=== PATIENT | female | born 1985 | race Caucasian/White ===

== ENCOUNTER 2018-05-05 15:58 | Emergency (ER) | payer BC, SELFPAY ==
[2018-05-05 15:59] VITALS: BP 155/94; PULSE 104; RESP 16; TEMP 36.9; O2SAT 98; BMI 25.7
[2018-05-05] MEDS: Diphth,Pertuss(Acell),Tet Vac 0.5 ML Vial IM (16:22)
--- NOTE | 2018-05-05 16:43 | ED.DCSUM_ITS ---
- ER Visit Summary Date of Service: 05/05/18 Chief Complaint: Left long finger laceration History of Present Illness: The patient is a 32 F right-hand dominant. Last tetanus shot was more than 10 years ago and will need to be updated today. She was cutting a cantaloupe at home and accidentally lacerated her left long finger on the mid phalanx. This occurred within the last hour or so. No other injuries. Physical Examination: Ill-appearing young female. Vital signs are stable afebrile. H EENT exam unremarkable. Lungs clear to auscultation. Heart regular rhythm no murmur. Abdomen soft nontender. She is moving all 4 extremities. They are neurovascularly intact. Her left long finger on the mid phalanx on the palmar side there is a flap laceration at approximately 2-1/2 cm in length. Involves the skin and subcu tissue. She has full flexion and extension of the left long digit. She can flex against resistance. The distal tip of the finger has normal cap refill touch sensation. There is oozing of blood. No pulsatile bleeding. No foreign body noted. Test Results: None Emergency Department Course and Treatment: Laceration repair left long finger done by Dr. Mejia. Local anesthetic with lidocaine via a digital block. Wound thoroughly cleaned using Shur-Clens and irrigated and explored. Closed using 3 simple interrupted 5-0 Ethilon sutures. Proper hemostasis wound closure obtained. Treatment Plan: Wound care. Suture removal in 10 days. Return if any signs of infection. Disposition: Discharge Impression: Left long finger laceration with ER repair of 2.5 cm Tetanus updated This note was generated with [employer] dictation software. It may contain incorrect words, spelling, and punctuation that were not noted in review of the chart prior to signing ED Disposition - Plan for ED Patient: Chief Complaint: Laceration Instructions: ED Laceration Hand Referrals: Jose F Mason MD [Primary Care Provider] - 10 Day for suture removal Additional Instructions: Keep wound clean. Apply antibiotic ointment daily. Return if any signs of infection. Suture removal in 10 days. Ice and elevate. Tylenol and Motrin for pain.
== END 2018-05-05 16:59 | disposition home or self-care (01) ==
PROVIDERS: Emergency Provider Emergency Medicine
DX: S61.213A Laceration without foreign body of left middle finger without damage to nail, initial encounter (principal); W45.8XXA Other foreign body or object entering through skin, initial encounter; Y93.G3 Activity, cooking and baking; Y92.9 Unspecified place or not applicable; Y99.9 Unspecified external cause status; Z23 Encounter for immunization; Z79.899 Other long term (current) drug therapy
CPT/HCPCS: 90715; 99282

== ENCOUNTER 2018-10-03 13:19 | Emergency (ER) | payer MEDICAID, SELFPAY ==
[2018-10-03 13:20] VITALS: BP 110/86; PULSE 109; RESP 16; TEMP 36.8; O2SAT 99; BMI 26.6
--- NOTE | 2018-10-03 13:40 | MRI_ITS ---
STUDY: MRI LUMBAR SPINE WITHOUT CONTRAST REASON FOR EXAM: Female, 33 years old. Cauda Equina Syndrome -- pain low back and bilat legs numbness, tingling x 2 days, difficult urinination. TECHNIQUE: Standardized fat and water weighted pulse sequences were obtained in the sagittal and axial planes. COMPARISON: None FINDINGS: T12-L1: Normal endplates. Normal disc height, hydration and morphology. Normal bilateral facet joints. Normal central canal and bilateral lateral recesses. Normal bilateral intervertebral neural foramina. Normal lumbar lordosis. There is no substantial scoliosis. Normal conus medullaris that terminates at the L1 L1-2: Normal endplates. Normal disc height, hydration and morphology. Normal bilateral facet joints. Normal central canal and bilateral lateral recesses. Normal bilateral intervertebral neural foramina. L2-3: Normal endplates. Normal disc height, hydration and morphology. Normal bilateral facet joints. Normal central canal and bilateral lateral recesses. Normal bilateral intervertebral neural foramina. L3-4: Normal endplates. Normal disc height, hydration and morphology. Normal bilateral facet joints. Normal central canal and bilateral lateral recesses. Normal bilateral intervertebral neural foramina. L4-5: There is mild disc space narrowing and endplates spondylosis. There is mild disc bulge with posterior annular fissure without significant central canal or foraminal stenosis. L5-S1: There is mild disc space narrowing and endplates spondylosis. There is spondylolysis with grade 1 anterolisthesis and mild disc bulge with posterior annular fissure without significant central canal or foraminal stenosis. Normal visualized sacral ala. Normal visualized paraspinous soft tissue structures. MRI/Spine Lumbar (Routine) IMPRESSION: No cord compression or central canal stenosis. L4/L5: Mild disc bulge with annular fissure L5/S1: Mild disc bulge with annular fissure. Spondylolysis with grade 1 anterolisthesis. Electronically Signed: Lázaro Lucero MD at 15:00 EST Tel , Service support ,
--- NOTE | 2018-10-03 13:45 | ED.VISSUMM ---
- ER Visit Summary Date of Service: 10/03/18 Chief Complaint: [] Lumbar back pain for 2 days trouble fully voiding bladder History of Present Illness: The patient is a 33 F [] history of trauma fever no UTI symptoms no history of lumbar back ailment for 2 days she has unexplained low lumbar back pain that radiates to both lower extremities and causes her to have a sense that she is not fully emptying her bladder she is constantly voiding. She has no history to suggest UTI kidney stone, no fever no skin lesions she has not had a bowel movement recently, she reports prior history for shingles involving the back but nothing recent, as a youth she fell suffered a back element but does not known to have any type of chronic lumbar back disorder she indicates that pain shoots down both lower extremities Physical Examination: [] 110/86 100 General, no distress resting comfortably HEENT is generally unremarkable The neck is supple no adenopathy Cardiovascular, regular rate and rhythm Lungs, clear bilateral Abdomen, soft nontender rectal Exam is nontender shows excellent rectal tone tool soft stool Extremities, no clubbing cyanosis or edema Neurologic, awake alert answering questions appropriately moving all 4 extremities motor exam is unremarkable she is able to stand and walk without difficulty she can heel raise toe raise knee bend with no problems, no neurologic abnormalities appreciated New problem for her she does not usually suffer from back pain that radiates to both legs differentials rather block bra and would certainly include cauda equina physical findings are unremarkable given her complaints however she will undergo UA post void UA urine and we will obtain lumbar spine MRI and lumbar plain films Test Results: [] Emergency Department Course and Treatment: [] The patient's UA, are unremarkable, the MRI scan shows no central disc or major acute gross abnormality some nonspecific findings please see that report I explained the above to her at this time she will follow-up with her outpatient providers, Pam for pain and return for change in symptoms Treatment Plan: [] Disposition: [] Home stable Impression: [] Her back pain This note was generated with [employer] dictation software. It may contain incorrect words, spelling, and punctuation that were not noted in review of the chart prior to signing ED Disposition - Plan for ED Patient: Chief Complaint: Back Referrals: Jose F Mason MD [Primary Care Provider] -
[2018-10-03] MEDS: morphine 8 MG/ML Syringe SC (14:03)
[2018-10-03] MEDS: Ondansetron 8 MG Tablet PO (14:04)
[2018-10-03 14:22] LABS: Internal QC Validated? YES +Cl - CLEAR BKGD
[2018-10-03 14:23] LABS: Pregnancy, Urine Negative Negative
--- NOTE | 2018-10-03 15:31 | ED.DEP ---
ED Disposition - Plan for ED Patient: Chief Complaint: Back Instructions: ED Spasm Back No Trauma Prescriptions: Naproxen [Naprosyn] 500 mg PO BID PRN #20 tab Referrals: Jose F Mason MD [Primary Care Provider] -
[2018-10-03 16:03] LABS: Mucous, Urine 0 SEEN /hpf (<or=2+); Red Blood Cells-Urine 0 SEEN /hpf (0-5)
[2018-10-03 17:03] LABS: Color, Urine Yellow (Yellow); Glucose, Dipstick Normal (Normal); Ketone-Dipstick Negative (Negative); Leukocyte Esterase-Dipstick Negative /ul (Negative); Nitrite-Dipstick Negative (Negative); Occult Blood-Urine Negative /ul (Negative); Protein-Dipstick Negative (Negative); Specific Gravity, Urine 1.015 (1.002-1.030); Urine Bilirubin Dipstick Negative (Negative); Urine Clarity Cloudy (Clear); Urine Urobilinogen Normal (Normal)
[2018-10-03 17:05] LABS: Squamous Epithelial Cells - UA 5-10 SEEN /hpf (5-10)
[2018-10-03 17:06] LABS: White Blood Cells 0-5 SEEN /hpf (0-5)
[2018-10-03 17:07] LABS: Bacteria 2+ /hpf (None Seen)
[2018-10-03 17:30] VITALS: BP 115/72; PULSE 83; RESP 17; O2SAT 95
--- NOTE | 2018-10-03 17:32 | ED.RN ---
DISCHARGE INSTRUCTIONS GIVEN TO AND REVIEWED WITH PATIENT, PATIENT DENIES QUESTIONS OR CONCERNS AND VOICES UNDERSTANDING OF DISCHARGE INSTRUCTIONS. PT AMBULATES OUT OF ROOM WITHOUT DIFFICULTY.
--- OUTSIDE RECORDS SUMMARY | 2018-11-19 20:28 | XMS RPT_ITS ---
:1985 Author Organization OH[facility] Care Team Providers Name Role Phone GWENDOLYN ANNE SPRING FITTER HELPER Admitting Unavailable GWENDOLYN ANNE CNP Attending Unavailable GWENDOLYN ANNE SPRING FITTER HELPER Consulting Unavailable GWENDOLYN ANNE SPRING FITTER HELPER Primary Care Unavailable PROVIDER, UNKNOWN Consulting Unavailable PROVIDER, UNKNOWN Consulting Unavailable JOSE F MASON Primary Care Unavailable Faye Solomon Attending Unavailable JOSE F MASON Primary Care Unavailable Chandana Rolon Attending Unavailable PROBLEMS PROBLEMS No Problem Records FoundPROCEDURES PROCEDURES No Procedure Records FoundRESULTS RESULTS EMERGENCY DEPARTMENT Observed: 10/03/2018 Status: F Source: [place] SUMMARY 5:10 PM [facility] REPOSITORY [facility] Medical Records Department [address] [place] [address] Emergency Department Summary 10/03/18 1345 MR#: [id number] Acct: [id number] Name: PAT SPARKS Rep #: [id number] : 1985 33 From: Faye Solomon MD PCP: Jose F Mason MD Status: REG ER - ER Visit Summary Date of Service: 10/03/18 Chief Complaint: [] Lumbar back pain for 2 days trouble fully voiding bladder History of Present Illness: The patient is a 33 F [] history of trauma fever no UTI symptoms no history of lumbar back ailment for 2 days she has unexplained low lumbar back pain that radiates to both lower extremities and causes her to have a sense that she is not fully emptying her bladder she is constantly voiding. She has no history to suggest UTI kidney stone, no fever no skin lesions she has not had a bowel movement recently, she reports prior history for shingles involving the back but nothing recent, as a youth she fell suffered a back element but does not known to have any type of chronic lumbar back disorder she indicates that pain shoots down both lower extremities Physical Examination: [] 110/86 100 General, no distress resting comfortably HEENT is generally unremarkable The neck is supple no adenopathy Cardiovascular, regular rate and rhythm Lungs, clear bilateral Abdomen, soft nontender rectal Exam is nontender shows excellent rectal tone tool soft stool Extremities, no clubbing cyanosis or edema Neurologic, awake alert answering questions appropriately moving all 4 extremities motor exam is unremarkable she is able to stand and walk without difficulty she can heel raise toe raise knee bend with no problems, no neurologic abnormalities appreciated New problem for her she does not usually suffer from back pain that radiates to both legs differentials rather block bra and would certainly include cauda equina physical findings are unremarkable given her complaints however she will undergo UA post void UA urine and we will obtain lumbar spine MRI and lumbar plain films Test Results: [] Emergency Department Course and Treatment: [] The patient's UA, are unremarkable, the MRI scan shows no central disc or major acute gross abnormality some nonspecific findings please see that report I explained the above to her at this time she will follow-up with her outpatient providers, Pam for pain and return for change in symptoms Treatment Plan: [] Disposition: [] Home stable Impression: [] Her back pain This note was generated with [employer] dictation software. It may contain incorrect words, spelling, and punctuation that were not noted in review of the chart prior to signing ED Disposition - Plan for ED Patient: Chief Complaint: Back Referrals: Jose F Mason MD [Primary Care Provider] - What to do if you have Problems For any increased pain, shortness of breath, bleeding, nausea or vomiting, chest pain, or any unexpected problems, contact your Primary Care Provider. Call [employer] Registry ([phone]) or report to the closest Emergency Room. Call 911 if necessary. 10/03/18 1710 <Electronically signed by Faye Solomon MD> Date Faye Solomon MD Cosigner Signature (If Indicated): Date CC: Jose F Mason MD DISCHARGE INSTRUCTION Observed: 10/03/2018 Status: F Source: [place] 3:32 PM [facility] REPOSITORY [facility] Medical Records Department [address] [place] [address] Discharge Instruction 10/03/18 1531 MR#: [id number] Acct: [id number] Name: PAT SPARKS Rep #: [id number] : 1985 33 From: Faye Solomon MD PCP: Jose F Mason MD Status: REG ER ED Disposition - Plan for ED Patient: Chief Complaint: Back Instructions: ED Spasm Back No Trauma Prescriptions: Naproxen [Naprosyn] 500 mg PO BID PRN #20 tab Referrals: Jose F Mason MD [Primary Care Provider] - What to do if you have Problems For any increased pain, shortness of breath, bleeding, nausea or vomiting, chest pain, or any unexpected problems, contact your Primary Care Provider. Call [facility] ([phone]) or report to the closest Emergency Room. Call 911 if necessary. 10/03/18 1532 <Electronically signed by Faye Solomon MD> Date Faye Solomon MD Cosigner Signature (If Indicated): Date CC: Jose F Mason MD ,URINE Collected: 10/03/2018 Status: F Source: [place] 2:11 PM [facility] REPOSITORY Order Comment: Order Date: 10/03/18 Has pt arrived? Y TYPE CODE TESTS RESULT OUT OF REFERENCE UNITS RANGE LAB L400.8000 Negative Normal HCGUQUAL Negative Result Comment: Very dilute urine specimens, as indicated by a low specific gravity, may not contain sales representative electric service levels of hCG. If is still suspected, a first morning urine specimen should be collected 48 hours later and tested. Performed By: #### L400.7600 #### [facility] [address] [place], [address] URINALYSIS, COMPLETE Collected: 10/03/2018 Status: F Source: [place] 2:11 PM [facility] REPOSITORY Order Comment: Order Date: 10/03/18 Has pt arrived? Y How was Urine Obtained? CUE SELECTOR TO SPECIFY TYPE CODE TESTS RESULT OUT OF RANGE REFERENCE UNITS LAB L400.3000 Yellow COLOR Normal Yellow LAB L400.3050 Clear Normal CLARITY Cloudy LAB L400.3200 Normal mg/dl Normal GLUCOSE, UR Normal LAB L400.3300 Negative mg/dL Normal BILIRUBIN URINE Negative LAB L400.3400 Negative mg/dl Normal KETONE UR Negative LAB L400.3465 1.002-1.030 Normal SP.GR. DIPSTX 1.015 LAB L400.3550 5.0 - 8.0 pH UR Normal 8.0 LAB L400.3600 Negative mg/dl PROT Normal DIPSTX Negative LAB L400.3700 Normal mg/dl Normal UROBILI Normal LAB L400.3750 Negative Normal NITRITE UR Negative LAB L400.3780 Negative /ul Normal OCCULT BLOOD-UR Negative LAB L400.3800 Negative /ul LEUK Normal ESTERASE Negative LAB L400.4050 0-5 /hpf WBC Normal 0-5 SEEN LAB L400.4100 0-5 /hpf 0 Normal RBC-UA SEEN LAB L400.4150 5-10 /hpf SQUAM Normal EPI 5-10 SEEN LAB L400.4300 None Seen /hpf 2+ Normal BACTERIA LAB L400.4350 <or=2+ /hpf 0 Normal MUCUS, URINE SEEN Performed By: #### L400.0001 #### [facility] [address] [place], [address] Observed: 10/03/2018 Status: F Source: [place] CULTURE, URINE 2:11 PM [facility] REPOSITORY Order Date: 10/03/18 Has pt arrived? Y Urine Culture ORGANISM 1: Mixed Gram Positive Organisms [place] Count >100,000 MIX CULTURE Mixed contaminants. Submit a new specimen if indicated. Performed By: #### M100.0650 #### [facility] [address] [place], [address] SPINE LUMBAR Observed: 10/03/2018 Status: F Source: [place] (ROUTINE) 1:42 PM [facility] REPOSITORY [facility] Imaging Services [address] [place] [address] Spine Lumbar (Routine) MR#: [id number] Acct: [id number] Name: PAT SPARKS Rep #: [id number] : 1985 F 33 From: Lázaro Lucero PCP: Jose F Mason MD Status: PRE ER Study: Spine Lumbar (Routine) Date of Exam: 10/03/18 Exam# [id number] Ordering Dr: Faye Solomon MD STUDY: MRI LUMBAR SPINE WITHOUT CONTRAST REASON FOR EXAM: Female, 33 years old. Cauda Equina Syndrome -- pain low back and bilat legs numbness, tingling x 2 days, difficult urinination. TECHNIQUE: Standardized fat and water weighted pulse sequences were obtained in the sagittal and axial planes. COMPARISON: None FINDINGS: T12-L1: Normal endplates. Normal disc height, hydration and morphology. Normal bilateral facet joints. Normal central canal and bilateral lateral recesses. Normal bilateral intervertebral neural foramina. Normal lumbar lordosis. There is no substantial scoliosis. Normal conus medullaris that terminates at the L1 L1-2: Normal endplates. Normal disc height, hydration and morphology. Normal bilateral facet joints. Normal central canal and bilateral lateral recesses. Normal bilateral intervertebral neural foramina. L2-3: Normal endplates. Normal disc height, hydration and morphology. Normal bilateral facet joints. Normal central canal and bilateral lateral recesses. Normal bilateral intervertebral neural foramina. L3-4: Normal endplates. Normal disc height, hydration and morphology. Normal bilateral facet joints. Normal central canal and bilateral lateral recesses. Normal bilateral intervertebral neural foramina. L4-5: There is mild disc space narrowing and endplates spondylosis. There is mild disc bulge with posterior annular fissure without significant central canal or foraminal stenosis. L5-S1: There is mild disc space narrowing and endplates spondylosis. There is spondylolysis with grade 1 anterolisthesis and mild disc bulge with posterior annular fissure without significant central canal or foraminal stenosis. Normal visualized sacral ala. Normal visualized paraspinous soft tissue structures. MRI/Spine Lumbar (Routine) IMPRESSION: No cord compression or central canal stenosis. L4/L5: Mild disc bulge with annular fissure L5/S1: Mild disc bulge with annular fissure. Spondylolysis with grade 1 anterolisthesis. Electronically Signed: Lázaro Lucero MD at 15:00 EST Tel , Service support , CC: MD Molina Parrayerogelio; Jose F Mason MD Ladies Suit Operator: Signed EMERGENCY DEPARTMENT Observed: 05/05/2018 Status: F Source: [place] SUMMARY 11:03 PM [facility] REPOSITORY [facility] Medical Records Department [address] [place] [address] Emergency Department Summary 05/05/18 1641 MR#: [id number] Acct: [id number] Name: PAT SPARKS Rep #: [id number] : 1985 32 From: Chandana Rolon MD PCP: Jose F Mason MD Status: DEP ER - ER Visit Summary Date of Service: 05/05/18 Chief Complaint: Left long finger laceration History of Present Illness: The patient is a 32 F right-hand dominant. Last tetanus shot was more than 10 years ago and will need to be updated today. She was cutting a cantaloupe at home and accidentally lacerated her left long finger on the mid phalanx. This occurred within the last hour or so. No other injuries. Physical Examination: Ill-appearing young female. Vital signs are stable afebrile. H EENT exam unremarkable. Lungs clear to auscultation. Heart regular rhythm no murmur. Abdomen soft nontender. She is moving all 4 extremities. They are neurovascularly intact. Her left long finger on the mid phalanx on the palmar side there is a flap laceration at approximately 2-1/2 cm in length. Involves the skin and subcu tissue. She has full flexion and extension of the left long digit. She can flex against resistance. The distal tip of the finger has normal cap refill touch sensation. There is oozing of blood. No pulsatile bleeding. No foreign body noted. Test Results: None Emergency Department Course and Treatment: Laceration repair left long finger done by Dr. Mejia. Local anesthetic with lidocaine via a digital block. Wound thoroughly cleaned using Shur-Clens and irrigated and explored. Closed using 3 simple interrupted 5-0 Ethilon sutures. Proper hemostasis wound closure obtained. Treatment Plan: Wound care. Suture removal in 10 days. Return if any signs of infection. Disposition: Discharge Impression: Left long finger laceration with ER repair of 2.5 cm Tetanus updated This note was generated with [employer] dictation software. It may contain incorrect words, spelling, and punctuation that were not noted in review of the chart prior to signing ED Disposition - Plan for ED Patient: Chief Complaint: Laceration Instructions: ED Laceration Hand Referrals: Jose F Mason MD [Primary Care Provider] - 10 Day for suture removal Additional Instructions: Keep wound clean. Apply antibiotic ointment daily. Return if any signs of infection. Suture removal in 10 days. Ice and elevate. Tylenol and Motrin for pain. What to do if you have Problems For any increased pain, shortness of breath, bleeding, nausea or vomiting, chest pain, or any unexpected problems, contact your Primary Care Provider. Call [employer] [facility] ([phone]) or report to the closest Emergency Room. Call 911 if necessary. 05/05/182302 <Electronically signed by Chandana Rolon MD> Date Chandana Rolon MD Cosigner Signature (If Indicated): Date CC: Jose F Mason MD DISCHARGE INSTRUCTION Observed: 05/05/2018 Status: F Source: [place] 11:03 PM [facility] REPOSITORY [facility] Medical Records Department [address] [place] [address] Discharge Instruction 05/05/18 1643 MR#: [id number] Acct: [id number] Name: PAT SPARKS Rep #: [id number] : 1985 32 From: Chandana Rolon MD PCP: Jose F Mason MD Status: DEP ER ED Disposition - Plan for ED Patient: Disposition: Home or Assisted Living Chief Complaint: Laceration Instructions: ED Laceration Hand Referrals: Jose F Mason MD [Primary Care Provider] - 10 Day for suture removal Additional Instructions: Keep wound clean. Apply antibiotic ointment daily. Return if any signs of infection. Suture removal in 10 days. Ice and elevate. Tylenol and Motrin for pain. What to do if you have Problems For any increased pain, shortness of breath, bleeding, nausea or vomiting, chest pain, or any unexpected problems, contact your Primary Care Provider. Call [facility] ([phone]) or report to the closest Emergency Room. Call 911 if necessary. 05/05/182302 <Electronically signed by Chandana Rolon MD> Date Chandana Rolon MD Cosigner Signature (If Indicated): Date CC: Jose F Mason MD CT FACIAL BONES W/O Observed: 01/08/2018 Status: F Source: [place] CONTRAST 4:08 PM [place] [address] Patient: PAT SPARKS Phone#: : 1985 Age: 32 Gender: F Pt. Type: Out Account: [id number] Location: [facility] Ordering: GWENDOLYN ANNE Exam Date: 01/08/2018/16:02 Family Phys: Charge Code: [id number] Physician: Lac Qui Parle Order #: [id number] DLP Dose#: PROCEDURE: CT FACIAL BONES WITHOUT CONTRAST COMPARISON: None. INDICATIONS: Chronic Jaw Pain TECHNIQUE: After obtaining the patient's consent, CT images were created without non-ionic intravenous contrast. All CT scans at this facility use dose modulation, iterative reconstruction, and/or weight based dosing when appropriate to reduce radiation dose to as low as reasonably achievable. IV CONTRAST: No IV contrast used,0ml TOTAL DOSE: 30.50 CTDIvol(mGy) FINDINGS: FACIAL BONES: Normal. No bony lesion or fracture SINUSES: Normal. No visible mass, significant fluid or mucosal thickening. NASAL FOSSA: Normal. No mass, fracture, or significant septal deviation. SKULL BASE: Normal. No mass or bone destruction. ORBITS: Normal. No visible mass, hematoma, edema or fracture. CAVERNOUS SINUS: Normal. Symmetric appearance with no visible lesion. SALIVARY GLANDS: Normal. The parotid and submandibular glands are unremarkable. OTHER: Normal. The nasopharynx, oropharynx, and oral cavity are unremarkable. No lymphadenopathy. CONCLUSION: No acute disease. The temporomandibular joints are symmetric. Dictated by: Giana Ruggiero MD on 01/08/2018 at 16:29 Approved by: Giana Ruggiero MD on 01/08/2018 at 16:29 ALLERGIES ALLERGIES DATE TYPE / CODE NAME / CODE REACTION SEVERITY SOURCE Drug promethazine Swelling Unknown [facility] Allergy/[id number]( HCl/[id number]([facility] SNOMED CT) NORM) Hospital Repository Miscellaneous No Known Moderate Jag Hutson Allergy/309356605( Allergies ([facility] SNOMED [facility]) Modifier) Hospital (Qualifier Repository Value) ENCOUNTERS ENCOUNTERS ADMIT/DISCHARGE ACCOUNT ADMITTING ENCOUNTER LOCATION SOURCE NUMBER CLASS 10/03/2018/ [id number] [facility] 7 [facility] ing:ED Repository 05/05/2018/ [id number] Emergency [facility] [place] 8 4 [facility] ing:ED Repository 01/08/2018/ [id number] OMID, [facility] PAYERS ENCOUNTER GUARANTOR PAYER SUBSCRIBER SOURCE 10/03/2018 PAT JENNINGS Primary PAT ROSADOB: Jamil PARTRIDGE Insurance:CARESOURCEP [id number] [facility] Number: [facility] [address]Axi: [id number] Repository Date:2018-10-03 O () [address]ATTN: [place] [address]NR: 10/03/2018 Secondary NOT GIVENUNK Jamil Insurance:SELF PAY [facility] Number: Effective Repository Date:2018-10-03 05/05/2018 PAT JENNINGS Primary PAT ROSADOB: Jamil PARTRIDGE Insurance:[facility] [id number] [facility], Number: [facility] [address]Ott: [id number] Repository sanket Date:[id number] () [address], [place] [address]PA: 05/05/2018 Secondary NOT GIVENUNK [facility] Insurance:SELF PAY [facility] Number: Effective Repository Date:2018-05-05 01/08/2018 PAT ROGERS Primary PAT ROSADOB: Jag ROSADOB: [facility] [id number] [facility] [id number] y Number: 0 501[facility] 501[facility] [id number] John MYERS Repository John PENA Date:Plan Name:RENE [id number]: ()
== END 2018-10-03 17:32 | disposition home or self-care (01) ==
PROVIDERS: Emergency Provider Emergency Medicine
DX: M54.5 Low back pain (principal); Z79.899 Other long term (current) drug therapy
CPT/HCPCS: 72148; 81001; 81025; 87086; 87088; 96372; 99282

== ENCOUNTER → 2019-07-11 12:07 | Outpatient (CLI) | payer MEDICAID, SELFPAY ==
[2019-07-11 14:51] LABS: Thyroid Stim Hormone (TSH) 1.09 uIU/mL (0.358-3.74)
== END ==
PROVIDERS: Family Provider Family Medicine; PCP Family Medicine; Referring Provider Family Medicine; Visit Provider Family Medicine
DX: F41.9 Anxiety disorder, unspecified (principal)
CPT/HCPCS: 36415; 84443

== ENCOUNTER → 2019-09-05 11:56 | Outpatient (CLI) | payer MEDICAID, SELFPAY ==
[2019-09-05 14:01] LABS: Mucous, Urine 0 SEEN /hpf (<or=2+); Red Blood Cells-Urine 0 SEEN /hpf (0-5); White Blood Cells 0 SEEN /hpf (0-5)
[2019-09-05 14:32] LABS: Osmolality, Urine 733 mOsm/KG
[2019-09-05 14:35] LABS: Anion Gap 6 (5-15); BUN 10 mg/dL (7-18); BUN/Creat Ratio 7.1 RATIO (10-20); Calcium,Total 8.9 mg/dL (8.5-10.1); Chloride 106 mmol/L (98-107); EST Glomerular Filtration Rate 45 mL/min (>60); Est Glom Filt Rate - Afr Amer 55 mL/min (>60); Glucose 85 mg/dL (74-106); Osmolality, Serum 290 mOsm/KG (275-295); Potassium 4.1 mmol/L (3.5-5.1); Sodium Level 139 mmol/L (136-145)
[2019-09-05 14:37] LABS: Color, Urine Yellow (Yellow); Glucose, Dipstick Normal (Normal); Ketone-Dipstick Negative (Negative); Leukocyte Esterase-Dipstick 25 /ul (Negative); Nitrite-Dipstick Negative (Negative); Occult Blood-Urine Negative /ul (Negative); Protein-Dipstick Negative (Negative); Specific Gravity, Urine 1.015 (1.002-1.030); Urine Bilirubin Dipstick Negative (Negative); Urine Clarity Clear (Clear); Urine Urobilinogen Normal (Normal); Urine pH 6.5 (5.0 - 8.0)
[2019-09-05 14:47] LABS: Bacteria 1+ /hpf (None Seen); Squamous Epithelial Cells - UA 0-5 SEEN /hpf (5-10)
== END ==
PROVIDERS: Family Provider Family Medicine; PCP Family Medicine; Referring Provider Family Medicine; Visit Provider Nurse Practitioner Family
DX: R63.1 Polydipsia (principal)
CPT/HCPCS: 36415; 80048; 81001; 83930; 83935

== ENCOUNTER → 2019-09-12 13:43 | Outpatient (CLI) | payer MEDICAID, SELFPAY ==
--- NOTE | 2019-09-12 13:49 | US_ITS ---
STUDY: ULTRASOUND BREAST - LEFT REASON FOR EXAM: Female, 34 years old. Left breast nipple discharge. TECHNIQUE: Axial and longitudinal images of the LEFT breast were performed with a high resolution ultrasound transducer. # OF IMAGES: 36 COMPARISON: Comparison is made with prior mammogram done earlier in the day. FINDINGS: LEFT Breast: There is a 1.3 cm x 1.1 cm x 0.5 cm well-defined hypoechoic nodule at the 12:00 position of the breast deep to the areola. This may represent a fibroadenoma. Tissue diagnosis is recommended. US/Breast Limited Unilateral IMPRESSION: 1.3 cm x 1.1 cm x 0.5 cm well-defined hypoechoic nodule in the retroareolar region of the breast as described. A biopsy is recommended. ASSESSMENT CATEGORY: BIRADS Category 4: Suspicious - Biopsy Should Be Considered. A letter regarding these results will be sent to the patient by the facility within 30 days. Electronically Signed: Joss Campuzano, at 11:04 EST , Service support ,
--- NOTE | 2019-09-12 13:51 | BI_ITS ---
MAMMOGRAPHY - BILATERAL DIAGNOSTIC REASON FOR EXAM: Female, 34 years old. Left nipple inversion. PERTINENT HISTORY: Mother with breast cancer. TECHNIQUE: Digital bilateral breast jose antonio (3D mammographic acquisition) in the CC and MLO projections. 2-D mediolateral oblique (MLO) and craniocaudad (CC) views of both breasts were obtained. CAD: Full Field Digital Mammography with Computer Added Detection was performed. COMPARISON: None. Baseline examination. FINDINGS: Breast Composition: There are scattered areas of fibroglandular density. There are no dominant masses or suspicious calcifications. Inversion of the left nipple. No other significant abnormalities are identified. BI/DIAG MAMM W/CAD, BILAT IMPRESSION: Inversion of the left nipple. Correlation with ultrasound of the periareolar region is recommended. ASSESSMENT CATEGORY: BIRADS Category 0: Incomplete. Need additional imaging evaluation. A letter regarding these results will be sent to the patient by the facility within 30 days. Approximately 10% of breast cancers are not detected by mammography. A normal mammogram should not delay biopsy of a clinically suspicious abnormality. Electronically Signed: Joss Campuzano, at 14:57 EST , Service support ,
--- NOTE | 2019-09-12 14:32 | US_ITS ---
STUDY: RENAL ULTRASOUND - COMPLETE REASON FOR EXAM: Female, 34 years old. Renal disease. TECHNIQUE: Ultrasound evaluation of the kidneys was performed with real-time and static dubois-scale imaging. COMPARISON: CT dated 01/01/2015. FINDINGS: RIGHT KIDNEY: Normal location of the right kidney, which is normal in size. The right kidney measures 9.7 x 5.0 x 4.0 cm. There is a normal cortex of the right kidney. The renal cortex measures 1.3 cm. There is no right renal mass or cyst. There are no right renal calculi. There is no right hydronephrosis. DISTAL RIGHT URETER: There is non-visualization of the distal right ureter. There is no demonstrated right ureterovesical junction calculus. There is a visualized right ureteral jet. LEFT KIDNEY: Normal location of the left kidney, which is normal in size. The left kidney measures 10.2 x 4.5 x 4.2 cm. There is a normal cortex of the left kidney. The renal cortex measures 1.7 cm. There is no left renal mass or cyst. There are no left renal calculi. There is no left hydronephrosis. DISTAL LEFT URETER: There is non-visualization of the distal left ureter. There is no demonstrated left ureterovesical junction calculus. There is a visualized left ureteral jet. BLADDER: The urinary bladder has a volume of 109.6 ml. There is a normal wall thickness of the distended urinary bladder. There is no demonstrated mass within the urinary bladder. There are no demonstrated bladder calculi. US/Kidney and Bladder IMPRESSION: Normal ultrasound of the kidneys and visualized urinary bladder. Electronically Signed: Jackelyn Luna MD at 3:41 EST , Service support ,
== END ==
PROVIDERS: Family Provider Family Medicine; PCP Family Medicine; Referring Provider Family Medicine; Visit Provider Family Medicine
DX: N64.53 Retraction of nipple (principal); N28.9 Disorder of kidney and ureter, unspecified; N64.52 Nipple discharge; N63.42 Unspecified lump in left breast, subareolar; Z80.3 Family history of malignant neoplasm of breast
CPT/HCPCS: 76642; 76770; 77062; 77066; G0279

== ENCOUNTER → 2019-09-28 09:38 | Outpatient (CLI) | payer MEDICAID, SELFPAY ==
--- NOTE | 2019-09-28 09:30 | BRBX_PTH ---
PATIENT: PAT SPARKS LOC: [facility] U#:[id number] AGE/SX: 40/F ROOM: RE09/28/[address]: Dr. Ray Mehta MD : 1985 BED: DIS: SPEC #: [id number] RECD: 09/30/19 09:00 STATUS: GUEVARA RAJIV #: [id number] SHAHRAM: 09/28/19 09:[address]: Ray Mehta DEPT: SURGICAL PATHOLOGY RECD BY: Aneudy Fritz ENTERED: 09/30/19 09:50 SP TYPE: BREAST BX OTHR DR: Dr. Ashish King MD Tissues: Left breast, NOS Procedures: Surgery Specimen Level IV HEADER OPERATION: Ultrasound guided needle core, left breast biopsy PRE-OP DIAGNOSIS: Abnormal mammogram, left TISSUE SUBMITTED: Left breast tissue ISCHEMIC TIME: Five seconds FIXATION TIME: 58 hours MICROSCOPIC DIAGNOSIS Ultrasound-guided needle core biopsy of the left breast: Mild duct ectasia. Collagenized stroma. No evidence of malignancy. AM:sp 10/01/19 MICROSCOPIC DESCRIPTION Slides are reviewed. GROSS DESCRIPTION Received is one container labeled with the patient name and designated left breast. The specimen consists of multiple irregular fragments of wilson yellow fibroadipose tissue that in aggregate measure 2 x 0.3 x 0.1 cm. The specimen is totally submitted in one cassette. /SJ:sp 09/30/19 TC: 5 CPT: 65407
[2019-09-28 09:53] VITALS: BMI 29.9
== END ==
PROVIDERS: Family Provider Family Medicine; PCP Family Medicine; Referring Provider Surgery; Visit Provider Surgery
DX: R92.8 Other abnormal and inconclusive findings on diagnostic imaging of breast (principal)
CPT/HCPCS: 88305

== ENCOUNTER 2020-02-23 22:41 | Emergency (ER) | payer MEDICAID, SELFPAY ==
[2019-09-28 09:53] VITALS: BMI 29.9
[2020-02-23 22:41] VITALS: BP 128/69; PULSE 104; RESP 22; TEMP 36.6; O2SAT 97; BMI 31.6
[2020-02-23 22:54] VITALS: BP 128/69; PULSE 104; RESP 22; TEMP 36.6; O2SAT 97
[2020-02-23 22:55] VITALS: O2SAT 97
--- NOTE | 2020-02-23 23:10 | ED.VISSUMM ---
- ER Visit Summary Date of Service: 02/23/20 Chief Complaint: Cough and shortness of breath History of Present Illness: The patient is a 34 F who presents with cough and shortness of breath that began today. Patient states it began gradually. Patient states she has a cough but denies any sputum production. Patient admits to a sore throat and some nasal congestion. Patient states she has had a fever up to 100.2 at home. Patient states she was recently treated for pneumonia. 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 Patient states she has pain in her left lower chest and lower thoracic area. Patient also admits to a headache. Physical Examination: Vital signs are stable. Patient is afebrile. Patient is in no acute distress. Oral mucosa is pink and moist. Neck is supple. Trachea is midline. There is no JVD. Heart was regular rate and rhythm. Lungs are clear and equal bilaterally. Abdomen is soft. Bowel sounds are normal. There is no tenderness. Cranial nerves II through XII are intact. There are no focal motor or sensory deficits. Extremities are intact. There are no focal motor or sensory deficits. Test Results: CBC and comprehensive metabolic profile were within normal limits. RSV, influenza, and rapid strep swabs were obtained and were negative. Portable chest x-ray was obtained. There is no acute cardiopulmonary process. Was interpreted by the radiologist and reviewed by myself. Emergency Department Course and Treatment: Patient was feeling better on reevaluation. Patient was advised that her COVID test and respiratory panel are pending. Patient was instructed to follow-up with her primary care physician for this. Patient was given COVID precautions. Patient understood and was agreeable with the plan. All questions were answered. Disposition: Discharge home Impression: Viral upper respiratory infection This note was generated with [employer] dictation software. It may contain incorrect words, spelling, and punctuation that were not noted in review of the chart prior to signing ED Disposition - Plan for ED Patient: Disposition: Home or Assisted Living Diagnosis: Viral upper respiratory infection Instructions: ED Upper Resp Infec No Abx Tx Referrals: Ashish King MD [Primary Care Provider] - 3-5 Days
[2020-02-23] MEDS: 0.9% Normal Saline 1,000 ML 1000 ML IV (23:35)
--- NOTE | 2020-02-23 23:55 | RAD_ITS ---
STUDY: X-RAY CHEST REASON FOR EXAM: Female, 34 years old. SOB, COUGH, FEVER -- DIAGNOSED WITH PNEUMONIA LAST WEEK TECHNIQUE: Single AP portable view of the chest. COMPARISON: 03/31/2015. FINDINGS: The lungs are clear and expanded. There is no demonstrated pleural abnormality. Normal size heart. Normal mediastinum and justino. Normal visualized pulmonary arteries. Normal visualized aortic arch and descending thoracic aorta. Normal visualized thoracic spine. Normal visualized ribs, clavicles, and shoulders. There is no demonstrated abnormality of the visualized soft tissue structures of the upper abdomen. RAD/Chest 1 View (Portable) IMPRESSION: Normal x-ray examination of the chest. Electronically Signed: Jorje Roberson MD at 0:44 EDT , Service support ,
[2020-02-23 23:57] LABS: ALB/GLOB Ratio 1.1 RATIO (0.9-2.4); AST(SGOT) 24 U/L (15-37); Alanine Aminotransfer ALT/SGPT 27 U/L (13-56); Albumin, Serum 3.6 g/dL (3.2-5.0); Alkaline Phosphatase 67 U/L (45-117); Anion Gap 5 (5-15); BUN 7 mg/dL (7-18); BUN/Creat Ratio 7.4 RATIO (10-20); Calcium,Total 8.8 mg/dL (8.5-10.1); Chloride 107 mmol/L (98-107); Creatinine, Serum 0.94 mg/dL (0.55-1.02); EST Glomerular Filtration Rate 71 mL/min (>60); Est Glom Filt Rate - Afr Amer 86 mL/min (>60); Estimated Creatinine Clearance 74.45 ml/min; Globulin 3.2 g/dL (2.2-4.2); Glucose 93 mg/dL (74-106); Protein, Total 6.8 g/dL (6.4-8.2); Sodium Level 139 mmol/L (136-145)
[2020-02-23 23:58] LABS: Absolute Lymphocyte Count 1.18 X10^3/uL (0.83-4.51); Absolute Neutrophil Count 3.6 X10^3/uL (2.0-7.7); Basophil# 0.03 X10^3/uL; Basophil% 0.5 % (0-1); Eosinophil# 0.03 X10^3/uL; Eosinophils% 0.5 % (0-5); Hematocrit 38.2 % (37-47); Hemoglobin 12.8 g/dL (12.0-15.0); Lymphocyte # 1.18 X10^3/ul (4.0); Lymphocyte % 21.6 % (19-41); Mean Corp Hgb Conc 33.5 g/dL (32-36); Mean Corpuscular Hgb 29.3 pg (27.0-32.0); Mean Corpuscular Volume 87.4 fL (81-99); Mean Platelet Vol. 10.5 fl (6.2-12.0); Monocyte# 0.54 X10^3/uL; Monocyte% 9.9 % (0-10); NRBC Flagged by Analyzer 0 % (0-5); Neutrophil # 3.62 X10^3/uL (2.7-7.7); Neutrophil % 66.2 % (47-70); Platelet Count 217 K/mm3 (150-450); RBC Distribution Width CV 13.2 % (11.6-14.6); RBC Distribution Width SD 42.3 fl (35.1-43.9); Red Blood Count 4.37 M/mm3 (4.2-5.4); White Blood Count 5.5 K/mm3 (4.4-11.0)
[2020-02-24 00:42] VITALS: BP 114/82; PULSE 98; RESP 16; TEMP 37.6; O2SAT 98
[2020-02-24 01:51] VITALS: BP 124/87; PULSE 93; RESP 18; TEMP 37; O2SAT 98
--- NOTE | 2020-02-24 19:04 | ED.RN ---
PATIENT CALLED, NO ANSWER, MESSAGE LEFT FOR PATIENT THAT COVID-19 TEST IS NEGATIVE
== END 2020-02-24 01:53 | disposition home or self-care (01) ==
PROVIDERS: Emergency Provider Emergency Medicine; PCP Family Medicine
DX: Z03.818 Encounter for observation for suspected exposure to other biological agents ruled out (principal); J06.9 Acute upper respiratory infection, unspecified; M54.9 Dorsalgia, unspecified; F31.9 Bipolar disorder, unspecified; F41.9 Anxiety disorder, unspecified; Z79.899 Other long term (current) drug therapy
CPT/HCPCS: 71045; 80053; 85025; 87633; 87635; 87804; 87807; 87880; 96360; 99285; G2023; J7030; A4216; U0004

== ENCOUNTER → 2021-08-10 | Outpatient (CLI) | payer MEDICAID, SELFPAY | END | disposition home or self-care (01) | PROVIDERS: PCP Family Medicine; Referring Provider Family Medicine; Visit Provider Family Medicine | DX: N39.0 Urinary tract infection, site not specified (principal) | CPT/HCPCS: 87086; 87088 ==

== ENCOUNTER 2021-12-22 13:50 | Outpatient (CLI) | payer MEDICAID, SELFPAY ==
[2021-12-22 15:26] LABS: Absolute Lymphocyte Count 2.52 X10^3/uL (0.83-4.51); Absolute Neutrophil Count 3.5 X10^3/uL (2.0-7.7); Basophil# 0.05 X10^3/uL; Basophil% 0.8 % (0-1); Eosinophil# 0.12 X10^3/uL; Eosinophils% 1.8 % (0-5); Hematocrit 42.6 % (37-47); Hemoglobin 14.2 g/dL (12.0-15.0); Lymphocyte # 2.52 X10^3/ul (0.83-4.51); Mean Corp Hgb Conc 33.3 g/dL (32-36); Mean Corpuscular Hgb 29.5 pg (27.0-32.0); Mean Corpuscular Volume 88.6 fL (81-99); Mean Platelet Vol. 10.2 fl (6.2-12.0); Monocyte# 0.47 X10^3/uL; Monocyte% 7.1 % (0-10); NRBC Flagged by Analyzer 0 % (0-5); Neutrophil # 3.46 X10^3/uL (2.7-7.7); Platelet Count 355 K/mm3 (150-450); RBC Distribution Width CV 13.6 % (11.6-14.6); RBC Distribution Width SD 44.3 fl (35.1-43.9); Red Blood Count 4.81 M/mm3 (4.2-5.4); White Blood Count 6.6 K/mm3 (4.4-11.0)
[2021-12-22 16:21] LABS: AST(SGOT) 29 U/L (15-37); Alanine Aminotransfer ALT/SGPT 60 U/L (13-56); Albumin, Serum 3.9 g/dL (3.2-5.0); Alkaline Phosphatase 83 U/L (45-117); Anion Gap 7 (5-15); BUN 7 mg/dL (7-18); BUN/Creat Ratio 7.9 RATIO (10-20); Calcium,Total 9.1 mg/dL (8.5-10.1); Chloride 105 mmol/L (98-107); Creatinine, Serum 0.88 mg/dL (0.55-1.02); EST Glomerular Filtration Rate 76 mL/min (>60); Est Glom Filt Rate - Afr Amer 92 mL/min (>60); Globulin 3.8 g/dL (2.2-4.2); Glucose 86 mg/dL (74-106); Potassium 4.5 mmol/L (3.5-5.1); Protein, Total 7.7 g/dL (6.4-8.2); Sodium Level 137 mmol/L (136-145); Thyroid Stim Hormone (TSH) 0.65 uIU/mL (0.358-3.74)
== END 2021-12-22 23:59 | disposition home or self-care (01) ==
LOC: MFPLAB 13:51
PROVIDERS: PCP Family Medicine; Referring Provider Family Medicine; Visit Provider Family Medicine
DX: R00.2 Palpitations (principal)
CPT/HCPCS: 36415; 80053; 84443; 85025

== ENCOUNTER → 2022-03-31 | Outpatient (CLI) | payer MEDICAID, SELFPAY ==
[2022-03-31 17:50] LABS: Absolute Lymphocyte Count 3.12 X10^3/uL (0.83-4.51); Absolute Neutrophil Count 5.7 X10^3/uL (2.0-7.7); Basophil# 0.05 X10^3/uL; Basophil% 0.5 % (0-1); Eosinophil# 0.07 X10^3/uL; Eosinophils% 0.7 % (0-5); Hematocrit 43.9 % (37-47); Hemoglobin 14.6 g/dL (12.0-15.0); Lymphocyte # 3.12 X10^3/ul (0.83-4.51); Lymphocyte % 32.1 % (19-41); Mean Corp Hgb Conc 33.3 g/dL (32-36); Mean Corpuscular Hgb 29.9 pg (27.0-32.0); Mean Platelet Vol. 10.3 fl (6.2-12.0); Monocyte# 0.69 X10^3/uL; Monocyte% 7.1 % (0-10); NRBC Flagged by Analyzer 0 % (0-5); Neutrophil # 5.73 X10^3/uL (2.7-7.7); Neutrophil % 59.1 % (47-70); Platelet Count 336 K/mm3 (150-450); RBC Distribution Width SD 42.6 fl (35.1-43.9); Red Blood Count 4.88 M/mm3 (4.2-5.4); White Blood Count 9.7 K/mm3 (4.4-11.0)
[2022-03-31 17:59] LABS: Erythrocyte Sedimentation Rate 10 mm/hr (0-30)
[2022-03-31 18:06] LABS: CRP 3.12 mg/L (0.0-3.0); Rheumatoid Factor < 10.0 IU/mL (<15)
[2022-04-04 20:02] LABS: ANTINUCLEAR ANTIBODIES DIRECT Negative (Negative)
== END | disposition home or self-care (01) ==
LOC: MFPLAB 15:22
PROVIDERS: PCP Family Medicine; Referring Provider Family Medicine; Visit Provider Nurse Practitioner Family
DX: M25.50 Pain in unspecified joint (principal)
CPT/HCPCS: 36415; 85025; 85652; 86038; 86140; 86431

== ENCOUNTER → 2022-05-04 | Outpatient (CLI) | payer MEDICAID, SELFPAY ==
[2022-05-04 23:19] LABS: Vitamin B12 511 pg/mL (211-911)
== END | disposition home or self-care (01) ==
LOC: MFPLAB 14:34
PROVIDERS: PCP Family Medicine; Referring Provider Family Medicine; Visit Provider Family Medicine
DX: R20.0 Anesthesia of skin (principal)
CPT/HCPCS: 36415; 82607

== ENCOUNTER → 2022-05-09 | Outpatient (CLI) | payer MEDICAID, SELFPAY ==
--- NOTE | 2022-05-09 13:59 | RAD_ITS ---
EXAM: XR CERVICAL SPINE, 4 OR 5 VIEWS CLINICAL INDICATION: numbness, tingling in left arm TECHNIQUE: Frontal, lateral and bilateral oblique views of the cervical spine. This report was created using [employer] report Pose technology. COMPARISON: None. FINDINGS: VERTEBRAE: Unremarkable. Preserved vertebral body height. No acute fracture. No spondylolisthesis. Preservation of the normal cervical lordosis. No significant facet arthropathy. DISC SPACES: Unremarkable. Disc spaces are maintained. SOFT TISSUES: Unremarkable. No prevertebral soft tissue widening. LUNG APICES: Clear. RAD/Cerv Spine 4 or 5 Views IMPRESSION: No evidence of acute fracture or spondylolisthesis. Electronically Signed: Zak Jorge MD at 17:41 EDT ,
== END | disposition home or self-care (01) ==
PROVIDERS: PCP Family Medicine; Referring Provider Family Medicine; Visit Provider Family Medicine
DX: R20.0 Anesthesia of skin (principal)
CPT/HCPCS: 72050

== ENCOUNTER → 2022-06-29 | Outpatient (CLI) | payer MEDICAID, SELFPAY ==
--- NOTE | 2022-06-29 15:29 | NEURO ---
NCS and/or EMG Patient Report Ordering Doctor: Charley Bautista DATE OF SERVICE: 06/29/22 Alejo presents for electrodiagnostic testing of the left upper limb. She reports numbness and tingling in the left hand for the past 2 months, primarily in the fourth and fifth digits. Electrodiagnostic findings: Left median motor nerve demonstrates normal distal latency and amplitude with borderline reduced conduction velocity. Left ulnar motor response demonstrates normal distal latency and amplitude with an approximately 25% drop in conduction velocity across the elbow. Normal median and ulnar F waves. Sensory responses are within normal limits On needle EMG, all muscles tested in the left upper limb showed no evidence of denervation with normal motor unit action potentials Electrodiagnostic impression: This is an abnormal study of the left upper limb. 1. Electrodiagnostic findings consistent with left ulnar neuropathy, consistent with cubital tunnel syndrome. Findings are moderate in nature. 2. There is no electrodiagnostic evidence for median neuropathy, including carpal tunnel syndrome 3. No electrodiagnostic evidence is noted for cervical radiculopathy.
== END | disposition home or self-care (01) ==
LOC: PSN 14:39
PROVIDERS: PCP Family Medicine; Referring Provider Family Medicine; Visit Provider Family Medicine
DX: R20.0 Anesthesia of skin (principal); R20.2 Paresthesia of skin
CPT/HCPCS: 95886; 95910

== ENCOUNTER 2022-08-31 09:18 | Day surgery (SDC) | payer MEDICAID, SELFPAY ==
[2022-08-31] VITALS (9 sets, daily range): BP systolic 95–123; BP diastolic 54–89; PULSE 81–87; RESP 16–18; TEMP 36–36.7; O2SAT 95–100; BMI 33.0
[2022-08-31] MEDS: Lactated Ringers 1,000 ML 15 ML IV (09:40)
[2022-08-31 09:57] LABS: Internal QC Validated? YES +Cl - CLEAR BKGD; Pregnancy, Urine Negative Negative
--- NOTE | 2022-08-31 10:50 | HP.PCM_ITS ---
HPI - General HPI Narrative PAT SPARKS, is a 37 F who presents FOR LEFT cubital tunnel release. No changes to H and P. Wishes to proceed. Still having numbness to ulnar nerve distribution. Had to appeal. Wishes to proceed, consent updated. Left elbow marked. Intake Vital Signs ? 02/22/2022:41 07/07/2213:03 Height 5 ft 5 in 5 ft 5 in Weight: ? 197 lb BMI ? 32.8 Intake Visit Reasons:?LEFT HAND Is patient in pain?: Yes Pain scale (1-10): 7 Allergies Bleach (Sodium Hypochlorite) Allergy (Verified 07/07/22 13:04) Inflammation of lung Medications quetiapine 400 mg tablet 400 mg PO DAILY 11/27/14 [History Confirmed 07/07/22] albuterol 90 mcg/actuation aerosol inhaler mcg inhalation 07/07/22 [History Confirmed 07/07/22] amitriptyline 10 mg tablet 10 mg PO DAILY 07/07/22 [History Confirmed 07/07/22] gabapentin 100 mg capsule 100 mg PO DAILY 07/07/22 [History Confirmed 07/07/22] sertraline 150 mg capsule 150 mg PO DAILY 07/07/22 [History Confirmed 07/07/22] PFSH Medical History?(Updated 07/07/22 @ 13:13 by Tone Pike MD) Abnormal mammogram of left breast Abnormal ultrasound of breast Acid reflux Anxiety Asthma Cubital tunnel syndrome on left Depression Hx of pancreatitis Inverted nipple Surgical History? History of ERCP History of tonsillectomy and adenoidectomy Hx of section Hx of cholecystectomy Family History? Mother Breast cancer ?? ? X2 Hypertension Cancer ?? ? skin cancerFather Hypertension Heart disease Diabetes Social History? Smoking Status:? Former smoker second hand exposure:? No alcohol intake:? current alcohol intake frequency: holidays/special occasions only substance use type:? does not use caffeine:? Yes what type of physical activity do you participate in:? none frequency:? does not exercise HPI LEFT HAND Details: Parts of this documentation were recorded by a scribe, this documentation accurately reflects the service provided and the decisions made by me, Dr. Tone Pike MD 07/07/22 0832. PAT SPARKS is a 36 year old F here today for referral for an upper extremity numbness/cubital tunnel syndrome. Taking gabapentin. Losing strength in the hand, numbness mostly in 4/5th digits. Pain in elbow up and down the arm. Does not lean on the elbow. Feels tired. Weak and pins and needles from the elbow down into the hand. DId have a neck xray. No elbow xrays. RHD. WOrk is a in hospital every department, phlebotomy is hard to pop tubes, and do surgery to hand instruments. [facility]. In [place] 30 minutes. Did try motrin and naproxen. Ortho Exam General General: Yes no acute distress Neurologic: Yes alert and Yes oriented x3 Psychologic: Yes reasonable and appropriate Left Wrist/Hand Motor: EPL: 5, FDP-2: 5, 1st Dorsal Interosseous: 4 and APB: 5 Sensation: Radial: I, Ulnar: D and Median: I WRIST: neg wartenburg sign Left Elbow Skin/Wound: Yes CDI, No eccymosis, No erythema and No Swelling Test: No TTP Medial Epicondyle, No TTP Lateral Epicondyle, No Thenar Atrophy, No Ulnar Nerve Subluxation, Yes Tinel's and Yes Hypothenar Atrophy ROM: Yes Flexion 0-140, Extension 0, Supination 0-90 and Pronation 0-80 Motor: Elbow Extension: 5 and Elbow Flexion: 5 ELBOW: Negative Tinel's test at the wrist.? Strong pricing supervisor strength.? No ulnar nerve subluxation positive Tinel's test at the elbow and compression test of the elbow positive.? She feels like it is asleep in the fourth and fifth digits. Supplemental Info NCS and/or EMG Patient Report Ordering Doctor: Charley Bautista DATE OF SERVICE: 06/29/22 Pat presents for electrodiagnostic testing of the left upper limb.? She reports numbness and tingling in the left hand for the past 2 months, primarily in the fourth and fifth digits. Electrodiagnostic findings: Left median motor nerve demonstrates normal distal latency and amplitude with borderline reduced conduction velocity.? Left ulnar motor response demonstrates normal distal latency and amplitude with an approximately 25% drop in conduction velocity across the elbow.? Normal median and ulnar F waves.? Sensory responses are within normal limits On needle EMG, all muscles tested in the left upper limb showed no evidence of denervation with normal motor unit action potentials Electrodiagnostic impression: This is an abnormal study of the left upper limb. 1.? Electrodiagnostic findings consistent with left ulnar neuropathy, consistent with cubital tunnel syndrome.? Findings are moderate in nature. 2.? There is no electrodiagnostic evidence for median neuropathy, including carpal tunnel syndrome 3.? No electrodiagnostic evidence is noted for cervical radiculopathy. 06/29/22 1533 <Electronically signed by Severino Benson MD> Date Transcribed:? 06/29/22 152 X-rays taken today of the left elbow reveal no acute abnormalities joint spaces are well-maintained. Coding Level of Care Code Off vis,new,level 3 Diagnoses Cubital tunnel syndrome on left? G56.22 Assessment and Plan Assessment and Plan (1) Cubital tunnel syndrome on left: ?Status:?Acute ?Plan: 36-year-old female with left elbow cubital tunnel syndrome.? This is on both nerve conduction studies as well as subjective symptoms and positive physical exam findings.? We talked about rest ice activity modifications doing nothing offloading next long-term risk of permanent or worsening nerve symptoms damage or permanent atrophy of the muscles she already seems to have some mild hypothenar muscle atrophy and intrinsic muscle weakness in the hand.? She can try nighttime extension splinting she has already tried anti-inflammatories and wishes to consider surgical option.? In this case it would be left elbow cubital tunnel release.? She wishes to go ahead with that.? Recovery before back to heavy lifting and gripping typically 6 weeks time with 2 weeks time to heal the incision. ?Pros and cons risks and benefits were discussed with the patient including but not limited to infection, pain, stiffness, bleeding, damage to surrounding structures, neurovascular injury, recurrence or retear, failure or wear of yves dware or fixation, instability, fracture, deep vein thrombosis and pulmonary embolism, anesthetic risks, patient dissatisfaction, need for further surgery and other risks.? Patient understood and wished to proceed with surgery, and signed the informed consent documentation. [facility] Medical History Abnormal mammogram of left breast Abnormal ultrasound of breast Acid reflux Asthma Bipolar disorder Cubital tunnel syndrome on left Depression Former smoker Hx of pancreatitis Inverted nipple Restless legs Wears glasses Home Medications quetiapine 400 mg tablet 400 mg PO QHS 11/27/14 [History Last Taken Unknown] albuterol 90 mcg/actuation aerosol inhaler 90 mcg inhalation PRN PRN ASTHMA 07/07/22 [History Last Taken Unknown] amitriptyline 10 mg tablet 25 mg PO QHS 07/07/22 [History Last Taken Unknown] gabapentin 100 mg capsule 300 mg PO TID 07/07/22 [History Last Taken Unknown] sertraline 150 mg capsule 10 mg PO QHS 07/07/22 [History Last Taken Unknown] Lactobacillus acidophilus 10 billion cell capsule (Probiotic) 10,000 mmu cells PO DAILY 07/15/22 [History Last Taken Unknown] Allergy/AdvReac Type Severity Reaction Status Date / Time Bleach (Sodium Hypochlorite) Allergy Inflammation Verified 08/29/22 13:45 of lung Family History Mother Breast cancer X2 Hypertension Cancer skin cancer Father Hypertension Heart disease Diabetes Surgical History History of ERCP History of tonsillectomy and adenoidectomy Hx of section Hx of cholecystectomy Social History Smoking Status: Former smoker second hand exposure: No alcohol intake: current alcohol intake frequency: holidays/special occasions only substance use type: does not use caffeine: Yes what type of physical activity do you participate in: none frequency: does not exercise Vital Signs Vital Signs Vital Signs: 08/31/22 10:00 08/31/22 10:00 Temperature 98.1 F Temperature Source Temporal Pulse Rate 82 Respiratory Rate 17 Respiratory Pattern Normal Blood Pressure 117/77 Blood Pressure Mean 90 Blood Pressure Source Monitor Blood Pressure Position Semi-Fowlers Blood Pressure Location Right Arm Pulse Ox 96 Oxygen Delivery Method Room Air Weight Weight: 198 lb 6.656 oz Body Mass Index (BMI) 33.0 Results Lab / Micro Data Labs: Laboratory Results - last 24 hr 08/31/22 09:50: Urine Test Negative
[2022-08-31] MEDS: Cefazolin 2 GM in 0.9% Normal Saline 100 ML IV (12:15)
--- NOTE | 2022-08-31 12:27 | OP.PCM_ITS ---
Problems Associated Problem List Diagnoses (1) Cubital tunnel syndrome on left: Report of Operation Date of Procedure: 08/31/22 Pre-Operative Diagnosis: left cubital tunnel syndrome Post-Operative Diagnosis: same Surgery/Procedure Performed:: left cubital tunnel release Surgeon: Tone Pike Type of Anesthesia: General Anesthesiologist: Eladio Rojo Estimated Blood Loss (mL): 10 Description of Procedure: Patient was brought to the operating room theater.? The patient was administered 2 g of IV Ancef prior to the start of the procedure.? Placed supine on the operating room table.? General anesthesia induced. ? SCDs on the legs.? Tourniquet applied to the operative extremity, appropriately padded. Arm table used. Operative extremity prepped and draped in the usual sterile fashion with chlorhexidine-based prep solution allowing over 3 minutes drying time prior to draping.? Preoperative timeout performed to confirm the site patient and the surgery. I began by using eschmar to exsanguinate, elevating the limb and inflating the tourniquet to 250 mmHg. ER the arm on sterile blankets. Made a standard incision on the medial side of the elbow over the cubital tunnel, between the medial epicondyle and olecranon tip. Release all sites of potential compression, proximally at medial IM septum, arcade of struthers, to Osbornes ligament, to between 2 heads of FCU at aponeurosis distally to the motor branch to FCU. Nerve intact, less tension after decompression. With extreme flexion does move toward but not over medial epicondyle. Left in situ. Wound thoroughly irrigated.? Tourniquet let down prior to end of the case and meticulous hemostasis achieved.? Incision closed with 2-0 vicryl subcutaneous and 3-0 Monocryl for skin.? Steri- Strips were applied after the skin was cleaned and dried. 10cc 0.25% bupivicaine around incision. Adaptic, gauze ABD pads and Godwin wrap was then applied.? Patient woken up from general anesthetic transferred off the operating room table and taken to postanesthetic care unit in stable condition. All sponge needle instrument counts were correct no complications.? Plan for the patient to be discharged home according to day surgery criteria when they are comfortable. Follow-up in the office in 2 days time. Complications none Admit VTE Documentation VTE Present on Admission: No VTE Mechan Device Prophylaxis: SCD's Reason prophylaxis not ordered:: Treatment Not Indicated Procedures Musculoskeletal [id number]: Other Procedure See Report
[2022-08-31] MEDS: Bupivacaine 0.25% 30 ML Vial (12:40)
--- NOTE | 2022-08-31 13:24 | DCINST_ITS ---
Discharge Instructions Diet Discharge Diet: No restrictions Activity Ice area for (Minutes): 10 Lifting Restrictions: ROM as tolerated, no heavy lifting Dressing / Incision Call your doctor if your incision/area has: Continuous Slow Oozing, Sudden Increased Bleeding, Increased Pain/ Swelling, Increased Redness, Foul Smelling Discharge and Swelling at the incision site Remove Dressing in: do not remove dressing Follow Up Care Please Follow Up With: Tone Pike MD When: 2 days Test Results: Test results from this visit will be discussed in further detail at your follow- up appointment, if applicable. Discharge Plan Admission Attending Provider: Tone Pike Primary Care Provider: Rukhsana Frazier Discharge Orders/Prescriptions Prescriptions: New oxycodone-acetaminophen [Percocet] 5-325 mg tablet 1 tab PO Q4H MDD 6 PRN (Reason: pain) 5 Days Qty: 20 0RF oxycodone-acetaminophen [Percocet] 5-325 mg tablet 1 tab PO Q4H MDD 6 PRN (Reason: pain) 7 Days Qty: 20 0RF No Action albuterol 90 mcg/actuation aerosol 90 mcg inhalation PRN PRN (Reason: ASTHMA) amitriptyline 10 mg tablet 25 mg PO QHS sertraline 150 mg capsule 10 mg PO QHS gabapentin 100 mg capsule 300 mg PO TID quetiapine 400 MG tablet 400 mg PO QHS Probiotic 10 billion cell Capsule 10,000 mmu cells PO DAILY Referrals / Follow Up: Rukhsana Frazier MD [Primary Care Provider] - Tone Pike MD [Med Staff - Active Staff] - Disposition Disposition (needs filled in before D/C Order can be placed): Home, Self Care
[2022-08-31] MEDS: HYDROcodone Bitartrate/Apap 5/325 Tablet PO (14:53)
[2022-08-31] MEDS: Ondansetron 4 MG/2 ML Vial IV (16:03)
== END 2022-08-31 16:36 | disposition home or self-care (01) ==
LOC: SDC 09:22 → AC 09:23
PROVIDERS: Anesthesiology; PCP Family Medicine; Referring Provider Orthopaedic Surgery Sports Medicine; Visit Provider Orthopaedic Surgery Sports Medicine
PROC: (CPT 64721; principal; 2022-08-31 10:45)
DX: G56.22 Lesion of ulnar nerve, left upper limb (principal); F31.9 Bipolar disorder, unspecified; F41.9 Anxiety disorder, unspecified; K21.9 Gastro-esophageal reflux disease without esophagitis; Z87.891 Personal history of nicotine dependence; Z79.899 Other long term (current) drug therapy
CPT/HCPCS: 64718; 01810; 81025; J7120; J2405

== ENCOUNTER 2023-04-10 14:43 | Outpatient (RCR) | payer OTHER, MEDICAID, SELFPAY | END 2023-04-21 23:59 | LOC: NS 14:43 | PROVIDERS: PCP Family Medicine; Referring Provider Family Medicine; Visit Provider Family Medicine | DX: Z71.3 Dietary counseling and surveillance (principal); E66.9 Obesity, unspecified; Z68.31 Body mass index [BMI] 31.0-31.9, adult | CPT/HCPCS: 97802 ==

== ENCOUNTER → 2023-08-29 | Outpatient (CLI) | payer OTHER, MEDICAID, SELFPAY ==
[2023-08-29 17:39] LABS: Absolute Lymphocyte Count 2.81 X10^3/uL (0.83-4.51); Absolute Neutrophil Count 3.6 X10^3/uL (2.0-7.7); Basophil# 0.04 X10^3/uL; Basophil% 0.6 % (0-1); Eosinophil# 0.11 X10^3/uL; Eosinophils% 1.6 % (0-5); Hematocrit 42.1 % (37-47); Hemoglobin 13.4 g/dL (12.0-15.0); Lymphocyte # 2.81 X10^3/ul (0.83-4.51); Mean Corp Hgb Conc 31.8 g/dL (32-36); Mean Corpuscular Hgb 28.6 pg (27.0-32.0); Mean Platelet Vol. 10.4 fl (6.2-12.0); Monocyte% 7.1 % (0-10); NRBC Flagged by Analyzer 0 % (0-5); Neutrophil # 3.55 X10^3/uL (2.7-7.7); Neutrophil % 50.4 % (47-70); Platelet Count 344 K/mm3 (150-450); RBC Distribution Width CV 14.1 % (11.6-14.6); RBC Distribution Width SD 46.3 fl (35.1-43.9); Red Blood Count 4.68 M/mm3 (4.2-5.4)
[2023-08-29 17:58] LABS: AST(SGOT) 27 U/L (15-37); Alanine Aminotransfer ALT/SGPT 43 U/L (13-56); Albumin, Serum 3.8 g/dL (3.2-5.0); Alkaline Phosphatase 86 U/L (45-117); Anion Gap 3 (5-15); BUN 8 mg/dL (7-18); BUN/Creat Ratio 8.2 RATIO (10-20); Calcium,Total 9.1 mg/dL (8.5-10.1); Chloride 104 mmol/L (98-107); Cholesterol 245 mg/dL (200); Creatinine, Serum 0.98 mg/dL (0.55-1.02); EST Glomerular Filtration Rate 67 mL/min (>60); Est Glom Filt Rate - Afr Amer 81 mL/min (>60); Globulin 3.9 g/dL (2.2-4.2); Glucose 90 mg/dL (74-106); High Density Lipoprotein 54 mg/dL; Potassium 3.5 mmol/L (3.5-5.1); Protein, Total 7.7 g/dL (6.4-8.2); Sodium Level 136 mmol/L (136-145); Triglycerides 168 mg/dL; Very Low Density Lipoprotein 34 mg/dL (5-40)
[2023-08-29 18:06] LABS: Hemoglobin A1c 4.8 % (3.8-5.6)
== END | disposition home or self-care (01) ==
LOC: MFPLAB 15:06
PROVIDERS: PCP Family Medicine; Visit Provider Family Medicine
DX: Z00.00 Encounter for general adult medical examination without abnormal findings (principal); Z13.1 Encounter for screening for diabetes mellitus; Z13.220 Encounter for screening for lipoid disorders
CPT/HCPCS: 36415; 80053; 80061; 83036; 85025

== ENCOUNTER → 2024-07-18 | Outpatient (CLI) | payer OTHER, SELFPAY ==
--- NOTE | 2024-07-18 17:17 | RAD_ITS ---
STUDY: X-RAY - LUMBAR SPINE REASON FOR EXAM: Female, 38 years old. new onset sciatica TECHNIQUE: 2 view(s) of the lumbar spine were obtained. COMPARISON: None FINDINGS: Normal lumbar lordosis. There is no substantial scoliosis. There is a normal alignment of the vertebrae. Spondylolysis of L5. Mild spurring at L3 and L4 endplates. Slightly narrowed L4-5 disc space. The soft tissue structures are unremarkable. RAD/Lumbar Spine 2 or 3 Views IMPRESSION: No acute bony injury of the lumbar spine. Electronically Signed: Garrett Dumont DO at 19:21 EDT Reading Location ID and State: [facility] / [place] Tel [phone], Service support ,
== END | disposition home or self-care (01) ==
LOC: MTRAD 17:16
PROVIDERS: PCP Family Medicine; Referring Provider Family Medicine; Visit Provider Family Medicine
DX: M54.32 Sciatica, left side (principal)
CPT/HCPCS: 72100

== ENCOUNTER → 2025-02-17 | Outpatient (CLI) | payer SELFPAY ==
[2025-02-17 16:18] LABS: hCG Titer Quant., Serum < 1 mIU/mL (<9 non-preg)
[2025-02-17 16:22] LABS: ALB/GLOB Ratio 1.4 RATIO (0.9-2.4); AST(SGOT) 17 U/L (<=31); Alanine Aminotransfer ALT/SGPT 11 U/L (<=34); Alkaline Phosphatase 49 U/L (35-104); Anion Gap 11 (5-15); BUN 7 mg/dL (4-19); BUN/Creat Ratio 8.7 RATIO (10-20); Calcium,Total 9.9 mg/dL (7.6-11.0); Carbon Dioxide 25.8 mmol/L (21.0-32.0); Chloride 100 mmol/L (98-108); Creatinine, Serum 0.79 mg/dL (0.70-1.20); EST Glomerular Filtration Rate 96 (>60); Follicle Stimulating Hormone 10.3 mIU/mL; Globulin 2.8 g/dL (2.2-4.2); Glucose 85 mg/dL (70-99); Luteinizing Hormone 27.1 mIU/mL; Potassium 3.5 mmol/L (3.3-5.1); Protein, Total 6.8 g/dL (5.9-8.4); Sodium Level 137 mmol/L (133-145); Total Bilirubin 0.36 mg/dL (0.00-1.30)
[2025-02-19 04:07] LABS: PROGESTERONE 1.2 ng/mL (.)
[2025-02-20 16:08] LABS: Estrogen, Total, Serum 172 pg/mL (.)
== END | disposition home or self-care (01) ==
LOC: MFPLAB 11:52
PROVIDERS: PCP Family Medicine; Referring Provider Family Medicine; Visit Provider Family Medicine
DX: Z13.1 Encounter for screening for diabetes mellitus (principal); R23.2 Flushing; R00.2 Palpitations; R11.0 Nausea
CPT/HCPCS: 36415; 80053; 82672; 83001; 83002; 83036; 84144; 84443; 84702

== ENCOUNTER → 2025-02-27 | Outpatient (CLI) | payer SELFPAY | END | disposition home or self-care (01) | PROVIDERS: PCP Family Medicine; Referring Provider Family Medicine; Visit Provider Family Medicine | DX: Z09 Encounter for follow-up examination after completed treatment for conditions other than malignant neoplasm (principal); Z87.19 Personal history of other diseases of the digestive system ==

== ENCOUNTER → 2025-02-28 | Outpatient (CLI) | payer SELFPAY ==
[2025-02-28 16:51] LABS: Amylase 86 U/L (28-100); Lipase 73 U/L (13-75)
== END | disposition home or self-care (01) ==
LOC: MFPLAB 11:42
PROVIDERS: PCP Family Medicine; Referring Provider Family Medicine; Visit Provider Family Medicine
DX: Z87.19 Personal history of other diseases of the digestive system (principal)
CPT/HCPCS: 36415; 82150; 83690